=== PATIENT | male | born 2000 | race African-American/Black ===

== ENCOUNTER 2020-11-17 16:01 | Emergency (ER) | payer OTHER ==
--- NOTE | 2020-11-17 16:34 | EDM.PDOC ---
<JuancarloscarloLv laceyaz Disla - Last Filed: 11/17/20 18:21> ED HPI GENERAL MEDICAL PROBLEM - General Chief Complaint: General Stated Complaint: TOOK TOO MUCH LAMOTRIGINE Time Seen by Provider: 11/17/20 16:02 Source of Information: Reports: Patient History Limitations: Reports: No Limitations - History of Present Illness INITIAL COMMENTS - FREE TEXT/NARRATIVE: 20-year-old male past medical history obesity presents for accidental overdose. Patient notes that he had a headache so he took some what he thought was Motrin. He notes that he typically takes 8-10 Motrin when he has a headache. After taking the medication he realized that he was actually taking his girlfriends Lamictal. He forced himself to throw up and came to the emergency department. This all occurred around 1540. He currently has no complaints and feels fine. - Related Data Allergies Allergy/AdvReac Type Severity Reaction Status Date / Time No Known Allergies Allergy Verified 11/17/20 16:17 Home Meds: Home Meds . [No Known Home Meds] 11/17/20 [History] Past Medical History - Past Health History Medical/Surgical History: Denies Medical/Surgical History Social & Family History - Tobacco Use Tobacco Use Status *Q: Never Tobacco User - Recreational Drug Use Recreational Drug Use: Yes ED ROS GENERAL - Review of Systems Review Of Systems: Comprehensive ROS is negative, except as noted in HPI. ED EXAM, GENERAL - Physical Exam Exam: See Below Exam Limited By: No Limitations General Appearance: Alert, WD/WN, No Apparent Distress Throat/Mouth: Normal Voice, No Airway Compromise Head: Atraumatic, Normocephalic Neck: Normal Inspection, Lymphadenopathy (R) Respiratory/Chest: No Respiratory Distress, Lungs Clear, Normal Breath Sounds, No Accessory Muscle Use Cardiovascular: Normal Peripheral Pulses, Regular Rate, Rhythm GI/Abdominal: Soft, Non-Tender Extremities: Normal Inspection Neurological: Alert, Oriented Psychiatric: Normal Affect, Normal Mood Skin Exam: Warm, Dry, Intact, Normal Color #1 Interpretation EKG Date: 11/17/20 Time: 16:31 Rhythm: NSR Rate (Beats/Min): 83 Huger: Normal P-Wave: Present QRS: Normal ST-T: Normal QT: Normal FL/PQ Interval: 143 Comparison: NA - No Prior EKG EKG Interpretation Comments: normal EKG w/ normal intervals/axis/non-ischemic Course - Re-Assessments/Exams Free Text/Narrative Re-Assessment/Exam: 11/17/20 16:34 We will reach out to poison control for management recommendations. 11/17/20 16:45 Poison recommends EKG and monitoring for dysrhythmia x6 hours from ingestion. This would be obs until 2139. They do not recommend labs or any specific treatment. 11/17/20 18:21 Patient remains stable without new complaints. Will continue obs until 2139. Patient care will be transitioned at 1999 to night-team physician to f/u reassessment at 6-hr s/p ingestion. Departure - Departure Disposition: Home, Self-Care 01 Clinical Impression: Accidental drug ingestion Qualifiers: Encounter type: initial encounter Qualified Code(s): T50.901A - Poisoning by unspecified drugs, medicaments and biological substances, accidental (unintentional), initial encounter - Discharge Information Instructions: Accidental Drug Poisoning, Adult Referrals: PCP,None [Primary Care Provider] - Forms: ED Department Discharge Additional Instructions: Your evaluated today on an emergent basis. At this time the poison control did recommend a 6-hour observation for heart arrhythmia. He did not have any arrhythmia since being in the emergency department. At this time you should be stable for discharge. If you have any change in symptoms or concerns please return to the emergency department. Please follow-up with your primary care ph ysician. [facility] - Primary Care [address] [place] [address] [place] [address] The patient is informed of any results of their evaluation and diagnostic workup and all questions are answered. They are given discharge instructions and return precautions. The patient is stable for discharge. The patient states they understand and agree with the plan and that they will return if their symptoms get worse or if they have any new concerns. The following information is given to patients seen in the emergency department who are being discharged to home. This information is to outline your options for follow-up care. We provide all patients seen in our emergency department with a follow-up referral. The need for follow-up, as well as the timing and circumstances, are variable depending upon the specifics of your emergency department visit. If you don't have a primary care physician on staff, we will provide you with a referral. We always advise you to contact your personal physician following an emergency department visit to inform them of the circumstance of the visit and for follow-up with them and/or the need for any referrals to a consulting specialist. The emergency department will also refer you to a specialist when appropriate. This referral assures that you have the opportunity for follow-up care with a specialist. All of these measure are taken in an effort to provide you with optimal care, which includes your follow-up. Under all circumstances we always encourage you to contact your private physician who remains a resource for coordinating your care. When calling for follow-up care, please make the office aware that this follow-up is from your recent emergency room visit. If for any reason you are refused follow-up, please contact the [facility] Emergency Department at and asked to speak to the emergency department charge nurse. Sepsis Event Note (ED) - Evaluation Sepsis Screening Result: No Definite Risk <River Dinh - Last Filed: 11/18/20 06:13> ED HPI GENERAL MEDICAL PROBLEM - History of Present Illness INITIAL COMMENTS - FREE TEXT/NARRATIVE: Patient was signed out to me by Dr. Morales pending a period of observation at 7PM I did reevaluate the patient and the patient accidentally took 10 tablets of his girlfriends Lamictal. The patient had continued stable vital signs and normal sinus rhythm on the monitor. I did discuss with him that we would be monitoring him for period of 6 hours. Will obtain a repeat EKG at that time. Twelve-lead EKG interpreted by myself. Normal sinus rhythm at a rate of 83beats per minute. Normal axis. FL interval is 143ms. QRS duration is 92ms. ST segments are normal without elevations or depressions. No Q waves present. Hypertrophy not noted. No changes demonstrated from prior EKG dated today. Interpretation: Normal sinus rhythm The patient was observed in the emergency department and continued to remain stable. At this time I did discuss he was stable for discharge. He is to return for any new or worsening symptoms. Patient was amenable to discharge and had no further questions DISPOSITION: The patient was discharged home in stable condition. The patient will follow up with primary care physician as needed CONDITION: Good PROCEDURES: None FINAL IMPRESSION(S)/DIAGNOSES: 1. Acute accidental ingestion of Lamictal River Dinh M.D. Course - Vital Signs Last Recorded V/S: Last Vital Signs Temp 36.7 C 11/17/20 16:13 Pulse 98 11/17/20 21:36 Resp 18 11/17/20 21:36 BP 153/85 H 11/17/20 21:36 Pulse Ox 97 11/17/20 21:36 Departure - Departure Time of Disposition: 21:40 Condition: Fair - Discharge Information *PRESCRIPTION DRUG MONITORING PROGRAM REVIEWED*: No *COPY OF PRESCRIPTION DRUG MONITORING REPORT IN PATIENT SANTOSH: No Sepsis Event Note (ED) - Focused Exam Vital Signs: Vital Signs Pulse Resp BP Pulse Ox 11/17/20 21:36 98 18 153/85 H 97 11/17/20 19:49 87 18 119/78 97 11/17/20 18:30 98 17 137/72 96
== END 2020-11-17 21:38 | disposition home or self-care (01) ==
LOC: MW.ED 16:01
DX: T39.311A Poisoning by propionic acid derivatives, accidental (unintentional), initial encounter (principal); E66.9 Obesity, unspecified; Z68.43 Body mass index [BMI] 50.0-59.9, adult
CPT/HCPCS: 93005; 93010; 99283; 99284-25

== ENCOUNTER 2021-09-22 13:59 | Emergency (ER) | payer OTHER ==
[2021-09-22] MEDS ORDERED: Diphtheria,Pertussis(Acell),Tetanus Vaccine 0.5 ML Syringe IM ONE (15:04)
--- NOTE | 2021-09-22 15:32 | EDM.PDOC ---
ED HPI GENERAL MEDICAL PROBLEM - General Chief Complaint: Laceration Stated Complaint: CUT THUMB ON LFT HAND Time Seen by Provider: 09/22/21 14:27 - History of Present Illness INITIAL COMMENTS - FREE TEXT/NARRATIVE: HISTORY AND PHYSICAL: History of present illness: This is a 20-year-old gentleman who presents ER today secondary to a laceration to his left thumb that occurred while he was working at [employer]. Patient denies any loss of mobility. Patient's tetanus status is up-to-date. Review of systems: As per history of present illness and below otherwise all systems reviewed and negative. Past medical history: As per history of present illness and as reviewed below otherwise noncontributory. Surgical history: As per history of present illness and as reviewed below otherwise noncontributory. Social history: No reported history of drug abuse. Family history: As per history of present illness and as reviewed below otherwise noncontributory. Physical exam: This patient was seen and evaluated during the 2019 SARS-CoV-2 novel coronavirus pandemic period. Community viral transmission is ongoing at time of this encounter and the emergency department is operating under pandemic response procedures. Constitutional: Patient is oriented to person, place, and time. Appears well- developed and well-nourished. No distress. HEENT: Moist mucous membranes Head: Normocephalic and atraumatic Eyes: Right eye exhibits no discharge. Left eye exhibits no discharge. No scleral icterus Neck: Normal range of motion. No tracheal deviation present. Cardiovascular: Normal rate and regular rhythm. Pulmonary: Effort normal, no respiratory distress. Abdominal: No distention Musculoskeletal: Normal range of motion Neurologic: Alert and oriented to person, place and time. Skin: [place], warm and dry. Psychiatric: Normal mood and affect. Behavior is normal. Judgment and thought content normal. Nursing note and vital signs have been reviewed Patient has a 3 cm laceration to the base of the first phalanx of his left thumb. Patient is neurovascular intact. Patient has good flexion extension abduction adduction of the thumb. Diagnostics: [] Therapeutics: [] Assessment and plan: 20-year-old who presents ER today with a laceration to his left thumb. Patient's tetanus status has been updated here in the ED. Patient was sutured here in the ED. Patient will need a wound check in 2 days and suture removal in 7 to 10 days. Definitive disposition and diagnosis as appropriate pending reevaluation and review of above. - Related Data Allergies Allergy/AdvReac Type Severity Reaction Status Date / Time No Known Allergies Allergy Verified 09/22/21 14:52 Home Meds: Home Meds . [No Known Home Meds] 11/17/20 [History] Past Medical History - Past Health History Medical/Surgical History: Denies Medical/Surgical History Social & Family History - Family History Family Medical History: No Pertinent Family History - Tobacco Use Tobacco Use Status *Q: Never Tobacco User - Caffeine Use Caffeine Use: Reports: Energy Drinks - Recreational Drug Use Recreational Drug Use: No ED ROS GENERAL - Review of Systems Review Of Systems: See Below ED EXAM, SKIN/RASH Exam: See Below ED SKIN PROCEDURES - Laceration/Wound Repair Left Digit - 1st (Thumb) Appearance: Subcutaneous Distal NVT: Neuro & Vascular Intact, No Tendon Injury Anesthetic Type: Local Local Anesthesia - Lidocaine (Xylocaine): 1% Plain Local Anesthetic Volume: 2cc Skin Prep: Chlorhexidine (Hibiciens), Saline Saline Irrigation (cc's): 200 Exploration/Debridement/Repair: Wound Explored Closed with: Sutures Lac/Wound length In cm: 3 Suture Size: 4-0 # of Sutures: 4 Suture Type: Nylon, Interrupted, Simple Course - Vital Signs Last Recorded V/S: Last Vital Signs Temp 96.9 F 09/22/21 14:53 Pulse 70 09/22/21 14:53 Resp 20 09/22/21 14:53 BP 130/79 09/22/21 14:53 Pulse Ox 99 09/22/21 14:53 - Orders/Labs/Meds Orders: Active Orders 24 hr Category Date Time Status Vaccine to be Administered/Admin Charge [RC] ASDIRECTED Care 09/22/21 15:05 Active Meds: Medications Discontinued Medications Generic Name Dose Route Start Last Admin Trade Name Freq PRN Reason Stop Dose Admin Diphtheria/Tetanus/Acell Pertussis 0.5 ml 09/22/21 15:04 09/22/21 15:08 Diphtheria,Pertussis(Acell),Tetanus Vaccine 0.5 Ml Syringe IM 09/22/21 15:05 0.5 ml .ONCE ONE Administration Lidocaine HCl 10 ml 09/22/21 14:36 09/22/21 15:05 Lidocaine 1% 5 Ml Sdv INJECT 09/22/21 14:37 10 ml ONETIME ONE Administration Departure - Departure Time of Disposition: 15:48 Disposition: Home, Self-Care 01 Condition: Good Clinical Impression: Laceration of left thumb Qualifiers: Encounter type: initial encounter Damage to nail status: without damage Foreign body presence: without foreign body Qualified Code(s): S61.012A - Laceration without foreign body of left thumb without damage to nail, initial encounter - Discharge Information Instructions: Laceration Care, Adult, Sutures, [place], or Adhesive Wound Closure, [id number] Referrals: PCP,None [Primary Care Provider] - Forms: ED Department Discharge Additional Instructions: Your seen and evaluated in the ER today secondary to a laceration to your left thumb. This was sutured in the emergency department. You will need a wound check in 2 days and suture removal and 7 to 10 days. You will likely need to follow-up with your occupational medicine clinic for reevaluation. You can take Tylenol and Motrin as needed for pain. You should apply bacitracin twice a day to the wound to help with healing. [facility] [place] [address] The following information is given to patients seen in the emergency department who are being discharged to home. This information is to outline your options for follow-up care. We provide all patients seen in our emergency department with a follow-up referral. The need for follow-up, as well as the timing and circumstances, are variable depending upon the specifics of your emergency department visit. If you don't have a primary care physician on staff, we will provide you with a referral. We always advise you to contact your personal physician following an emergency department visit to inform them of the circumstance of the visit and for follow-up with them and/or the need for any referrals to a consulting specialist. The emergency department will also refer you to a specialist when appropriate. This referral assures that you have the opportunity for follow-up care with a specialist. All of these measure are taken in an effort to provide you with optimal care, which includes your follow-up. Under all circumstances we always encourage you to contact your private physician who remains a resource for coordinating your care. When calling for follow-up care, please make the office aware that this follow-up is from your recent emergency room visit. If for any reason you are refused follow-up, please contact the [facility] Emergency Department at and asked to speak to the emergency department charge nurse. [facility] - Primary Care [address] [place] [address] [id number] [address] [address] Sepsis Event Note (ED) - Evaluation Sepsis Screening Result: No Definite Risk - Focused Exam Vital Signs: Vital Signs Temp Pulse Resp BP Pulse Ox 09/22/21 14:53 96.9 F 70 20 130/79 99 - My Orders Last 24 Hours: My Active Orders 09/22/21 15:05 Vaccine to be Administered/Admin Charge [RC] ASDIRECTED - Assessment/Plan Last 24 Hours: My Active Orders 09/22/21 15:05 Vaccine to be Administered/Admin Charge [RC] ASDIRECTED
== END 2021-09-22 16:01 | disposition home or self-care (01) ==
LOC: MW.ED 13:59
DX: S61.012A Laceration without foreign body of left thumb without damage to nail, initial encounter (principal); Z23 Encounter for immunization; W26.8XXA Contact with other sharp object(s), not elsewhere classified, initial encounter; Y92.69 Other specified industrial and construction area as the place of occurrence of the external cause
CPT/HCPCS: 12002; 90471; 90715; 99282-25